=== PATIENT | male | born 1950 | race Caucasian/White ===

== ENCOUNTER 2019-03-31 05:27 | Emergency (ER) | payer MEDICARE ==
[~2019-03-31] VITALS: Ht 180.3 cm; Wt 77.3 kg
[2019-03-31] MEDS ORDERED: METO-558 PO (05:59)
[2019-03-31] MEDS ORDERED: METF-960 PO (05:59)
[2019-03-31] MEDS ORDERED: FURO40 PO (05:59)
[2019-03-31] MEDS ORDERED: EMPA10TA PO (05:59)
[2019-03-31] MEDS ORDERED: ATOR40TA28 PO (05:59)
[2019-03-31] MEDS ORDERED: PANT40TA25 PO (05:59)
[2019-03-31] MEDS ORDERED: DIGO125T84 PO (05:59)
[2019-03-31] MEDS ORDERED: GABA-533 PO (05:59)
[2019-03-31] MEDS ORDERED: APIX5TAB PO (05:59)
[2019-03-31] MEDS ORDERED: ASPI-1182 PO (05:59)
[2019-03-31] MEDS ORDERED: CLOP75TA3 PO (05:59)
[2019-03-31] MEDS ORDERED: MAGOX PO (05:59)
[2019-03-31 06:01] LABS: GLUCOSE,POINT OF CARE 179 MG/DL (70-110)
[2019-03-31] MEDS ORDERED: ACETAMINOPHEN 325 MG TABLET PO ONE (06:30)
[2019-03-31] MEDS ORDERED: CLINDAMYCIN HCL 150 MG CAPSULE PO ONE (07:30)
[2019-03-31 07:41] VITALS: BP 109/64
== END 2019-03-31 08:12 | disposition home or self-care (01) ==
LOC: EMS 05:27
DX: E11.628 Type 2 diabetes mellitus with other skin complications (principal); S91.301A Unspecified open wound, right foot, initial encounter; L03.115 Cellulitis of right lower limb; E78.00 Pure hypercholesterolemia, unspecified; I11.0 Hypertensive heart disease with heart failure; I50.9 Heart failure, unspecified; Z95.0 Presence of cardiac pacemaker; Z79.899 Other long term (current) drug therapy; Z98.890 Other specified postprocedural states; X58.XXXA Exposure to other specified factors, initial encounter; Y93.89 Activity, other specified; Y92.89 Other specified places as the place of occurrence of the external cause; Y99.8 Other external cause status
CPT/HCPCS: 93971